=== PATIENT | female | born 1960 ===

== ENCOUNTER 2016-11-23 14:18 | Emergency (ER) | payer MEDICAID ==
[2016-11-23 14:29] VITALS: O2SAT 99
[2016-11-23 15:57] LABS: RBC URINE 9 /hpf (0-3); URINE BILIRUBIN NEGATIVE (NEGATIVE); URINE BLOOD 2+ (NEGATIVE); URINE COLOR Yellow (YELLOW); URINE GLUCOSE (UA) NORMAL (Normal); URINE KETONE NEGATIVE (NEGATIVE); URINE LEUKOCYTE ESTERASE NEG Leu/uL (Negative); URINE PROTEIN NEGATIVE (NEGATIVE); URINE UROBILINOGEN NORMAL mg/dL (0.2-1.0); WBC URINE < 1 /hpf (0-5)
--- NOTE | 2016-11-23 16:31 | C.PDOC ---
History Of Present Illness 56 yr old F c/o right low back pain with radiation to right low leg and right abdomen for about a month. Pain got worse yesterday. Pt has a hx of kidney stones and sciatica.Denies dysuria, urinary/bowel incontinence, leg weakness or numbness. Time Seen by Provider: 11/23/16 16:04 Chief Complaint (Nursing): Back Pain History Per: Patient, Family Onset/Duration Of Symptoms: Waxing/Waning Current Symptoms Are (Timing): Worse Quality Of Discomfort: Sharp Past Medical History Reviewed: Historical Data, Nursing Documentation, Vital Signs Vital Signs: Last Vital Signs Temp 98.2 F 11/23/16 18:26 Pulse 78 11/23/16 18:26 Resp 16 11/23/16 18:26 BP 130/70 11/23/16 18:26 Pulse Ox 99 11/23/16 19:43 - Medical History PMH: Hypothyroidism Family History: States: No Known Family Hx - Social History Hx Alcohol Use: No Hx Substance Use: No - Immunization History Hx Tetanus Toxoid Vaccination: No Hx Influenza Vaccination: No Hx Pneumococcal Vaccination: No Review Of Systems Except As Marked, All Systems Reviewed And Found Negative. Constitutional: Negative for: Fever Respiratory: Negative for: Cough Gastrointestinal: Negative for: Nausea, Vomiting Genitourinary: Negative for: Dysuria, Frequency, Hematuria, Vaginal Discharge Musculoskeletal: Positive for: Leg Pain Physical Exam - Physical Exam Appears: Well, Non-toxic, No Acute Distress Skin: Normal Color, Warm, Dry Head: Atraumatic, Normacephalic Nose: Normal Oral Mucosa: Moist Tongue: Normal Appearing Chest: Symmetrical Cardiovascular: Rhythm Regular Respiratory: Normal Breath Sounds Gastrointestinal/Abdominal: Normal Exam, Bowel Sounds, Soft, No Tenderness Back: CVA Tenderness (right ), Paraspinal Tenderness, Other (right low back tenderness) Extremity: Normal ROM, No Tenderness Neurological/Psych: Oriented x3, Normal Speech, Normal Motor, Normal Sensation Gait: Steady ED Course And Treatment O2 Sat by Pulse Oximetry: 99 Pulse Ox Interpretation: Normal - CT Scan/US abd /pelvis Other Rad Studies (CT/US): Radiology Report Reviewed CT/US Interpretation: no acute changes Medical Decision Making Medical Decision Making: On re-eval pain resolved, pt ambulates with steady gait. Disposition Counseled Patient/Family Regarding: Studies Performed, Diagnosis, Need For Followup, Rx Given - Disposition Referrals: Gibbs-Cruz,Sudeep Theo, MD [Non-Staff] - Disposition: HOME/ ROUTINE Disposition Time: 17:55 Condition: STABLE Additional Instructions: FOLLOW UP WITH PMD ON FRIDAY FOR RE-EVALUATION OF HEMATURIA. CONTINUE FLEXERIL AND MOBIC PRESCRIBED BY PMD. CONTINUE PHYSICAL THERAPY. IF URINARY/BOWEL INCONTINENCE OR LEG WEAKNESS, NUMBNESS DEVELOP RETURN TO ED. Instructions: Sciatica (ED), Acute Hematuria (ED) Forms: [facility] (Nepali), Gen Discharge Inst Georgian Print Language: KINYARWANDA - Clinical Impression Clinical Impression: Sciatica, Hematuria
--- NOTE | 2016-11-23 17:47 | CT ---
PROCEDURE: CT Abdomen and Pelvis without intravenous contrast HISTORY: PAIN R/O KIDNEY STONES COMPARISON: None. TECHNIQUE: Axial and reformatted coronal and sagittal CT images of the abdomen and pelvis were obtained without IV or oral contrast administration.. Contrast Dose: 0 Radiation dose: Total exam DLP = 550.87 mGy-cm. This CT exam was performed using one or more of the following dose reduction techniques: Automated exposure control, adjustment of the mA and/or kV according to patient size, and/or use of iterative reconstruction technique. FINDINGS: LOWER THORAX: Unremarkable. LIVER: There is a 2.8 centimeter low-attenuation lesion at the left liver lobe may represent benign cyst, not fully evaluated in this noncontrast exam . Otherwise no gross lesion or ductal dilatation. GALLBLADDER AND BILE DUCTS: Unremarkable. PANCREAS: The pancreatic tail is not visualized. Otherwise the pancreatic body and head are grossly unremarkable in this noncontrast exam. SPLEEN: The spleen is normal in size. There is adjacent large accessory spleen noted versus old rupture of the spleen. ADRENALS: Unremarkable. No mass. KIDNEYS AND URETERS: No evidence of nephrolithiasis or hydronephrosis. There are bilateral parapelvic cyst seen larger and more on the right. The ureters are not dilated. VASCULATURE: Unremarkable. No aortic aneurysm. BOWEL: Unremarkable. No obstruction. No gross mural thickening. APPENDIX: Unremarkable. Normal appendix. PERITONEUM: Unremarkable. No free fluid. No free air. LYMPH NODES: Unremarkable. No enlarged lymph nodes. BLADDER: Unremarkable. REPRODUCTIVE: Unremarkable. BONES: No acute fracture. OTHER FINDINGS: None. IMPRESSION: No evidence of nephrolithiasis or hydronephrosis. Bilateral parapelvic small cysts seen in both kidneys. No evidence of acute pathology in the abdomen and pelvis in this noncontrast study.
[2016-11-23] MEDS ORDERED: Dexamethasone 4 mg/1 ml IM STA (17:55)
[2016-11-23] MEDS ORDERED: Dexamethasone 4 mg/1 ml ONE (18:12)
[2016-11-23 18:27] VITALS: BP 130/70; PULSE 78; RESP 16; TEMP 98.2
== END 2016-11-23 18:26 | disposition home or self-care (01) ==
LOC: C.ER 14:18
DX: M54.31 Sciatica, right side (principal); R31.9 Hematuria, unspecified
CPT/HCPCS: 74176; 81001; 96372; 99284; J1100; J1885